=== PATIENT | male | born 1960 | race Caucasian/White ===

== ENCOUNTER 2023-10-30 11:37 | Inpatient (IN) | payer BC ==
[2023-10-30 12:49] LABS: #Eosinphils 0.3 thou/uL (0.0-0.7); #Monocytes 0.5 thou/uL (0.11-0.59); #Neutrophils 4.6 thou/uL (1.40-6.50); %Basophils 0.4 % (0.0-1.0); %Eosinophils 4.3 % (0.0-10.0); %Lymphocytes 25.2 % (21.0-51.0); %Monocytes 7.3 % (0.0-10.0); %Neutrophils 62.5 % (42.0-75.0); Hematocrit 39.9 % (42.0-52.0); Hemoglobin 13.7 g/dL (14.0-18.0); Mean Corpuscular HGB CONC 34.3 g/dL (32.0-36.0); Mean Corpuscular Hemoglobin 32.2 pg (27.0-31.0); Mean Corpuscular Volume 93.7 fl (78.0-98.0); Platelet Count 284 10x3/uL (130-400); RBC Distribution Width 11.9 % (11.5-14.5); Red Blood Cell (RBC) Count 4.26 mill/uL (4.70-6.10); White Blood Cell (WBC) Count 7.4 10x3/uL (4.8-10.8)
[2023-10-30] MEDS ORDERED: diphenhydrAMINE 50 MG/ML VIAL IVP PRN (13:04)
[2023-10-30] MEDS ORDERED: Promethazine 25 MG TAB PO PRN (13:04)
[2023-10-30] MEDS ORDERED: Milk Of Magnesia 30 ML UDCUP PO PRN (13:04)
[2023-10-30] MEDS ORDERED: Mag-Al 1200 mg/1200 mg/30 ML UDCUP PO PRN (13:04)
[2023-10-30] MEDS ORDERED: traMADol HCl 50 MG TAB PO PRN (13:04)
[2023-10-30 13:06] LABS: Prothrombin Time 13.6 sec (12.0-14.7)
[2023-10-30 13:17] LABS: ALT (SGPT) 19 U/L (8-55); AST (SGOT) 16 U/L (5-34); Albumin 4.3 g/dL (3.4-4.8); Alkaline Phosphatase 63 U/L (40-110); Anion Gap 14 mmol/L (10-20); BUN (Urea Nitrogen) 14 mg/dL (8.4-25.7); Bilirubin, Total 0.5 mg/dL (0.2-1.2); Calc. Creatinine Clearance 0 mL/min (70-130); Calcium 9.5 mg/dL (7.8-10.44); Carbon Dioxide 23 mmol/L (23-31); Chloride 104 mmol/L (98-107); Estimated GFR 103; Globulin 2.5 g/dL (2.4-3.5); Glucose 103 mg/dL (80-115); Potassium 3.9 mmol/L (3.5-5.1); Protein, Total 6.8 g/dL (5.8-8.1); Sodium 137 mmol/L (136-145)
[2023-10-30] MEDS ORDERED: CEFAZOLIN 2 GM VIAL ONE ×2 (14:05→14:06)
[2023-10-30] MEDS ORDERED: Sodium Chloride 0.9% 100 ML ONE (14:05)
[2023-10-30] MEDS ORDERED: fentaNYL 50 mcg/mL 1 mL Vial ONE (15:25)
[2023-10-30] MEDS ORDERED: PROPOFOL 20 ML ONE ×3 (15:25→16:26)
[2023-10-30] MEDS ORDERED: Lidocaine 1% PF 5 ML VIAL ONE (15:26)
[2023-10-30] MEDS ORDERED: Midazolam HCl 2 mg/2 ml Vial ONE (15:26)
[2023-10-30] MEDS ORDERED: Lidocaine 1% (PF) 30 ML VIAL ONE (16:10)
[2023-10-30] MEDS ORDERED: tiZANidine HCl 4 MG TAB PO PRN (16:19)
[2023-10-30] MEDS: Sodium Chloride 0.9% 1,000 ML IV SCH (17:27)
[2023-10-30] MEDS: Lisinopril 20 MG TAB PO SCH (17:45)
[2023-10-30] MEDS: Amlodipine 10 MG TAB PO SCH (17:47)
[2023-10-30] MEDS: Amlodipine 5 MG TAB PO SCH (18:21)
[2023-10-30] MEDS: Lisinopril 10 MG TAB PO SCH (18:21)
[2023-10-30] MEDS: hydrALAZINE 20 MG/ML VIAL SLOW IVP PRN (18:39)
[2023-10-30] MEDS: Venlafaxine 75 MG TAB PO SCH (20:30)
[2023-10-30] MEDS: HYDROcodone/Acetaminophen 10/325 mg Tablet PO PRN ×2 (20:30→23:27)
[2023-10-30] MEDS: Diazepam 5 MG TAB PO PRN (21:37)
[2023-10-30] MEDS: CEFAZOLIN 2 GM in Sodium Chloride 0.9% 100 ML IVPB SCH (21:38)
[2023-10-30] MEDS: Lactated Ringer's 1,000 ML IV SCH (23:59)
[2023-10-31 05:27] LABS: #Eosinphils 0.4 thou/uL (0.0-0.7); #Monocytes 0.7 thou/uL (0.11-0.59); %Basophils 0.4 % (0.0-1.0); %Eosinophils 4.3 % (0.0-10.0); %Lymphocytes 25.9 % (21.0-51.0); %Monocytes 8.7 % (0.0-10.0); %Neutrophils 60.3 % (42.0-75.0); Hematocrit 38.5 % (42.0-52.0); Hemoglobin 13.1 g/dL (14.0-18.0); Mean Corpuscular Hemoglobin 31.6 pg (27.0-31.0); Mean Corpuscular Volume 92.8 fl (78.0-98.0); Mean Platelet Volume 9.9 fL (7.4-10.4); Platelet Count 284 10x3/uL (130-400); RBC Distribution Width 11.8 % (11.5-14.5); Red Blood Cell (RBC) Count 4.15 mill/uL (4.70-6.10); White Blood Cell (WBC) Count 8.3 10x3/uL (4.8-10.8)
[2023-10-31 05:49] LABS: Anion Gap 13 mmol/L (10-20); BUN (Urea Nitrogen) 10 mg/dL (8.4-25.7); Calc. Creatinine Clearance 156 mL/min (70-130); Carbon Dioxide 25 mmol/L (23-31); Chloride 102 mmol/L (98-107); Estimated GFR 106; Glucose 91 mg/dL (80-115); Potassium 3.6 mmol/L (3.5-5.1); Sodium 136 mmol/L (136-145)
[2023-10-31] MEDS: Enoxaparin 40 MG (0.4 mL) SYRINGE SC SCH (08:34)
[2023-10-31] MEDS: Lisinopril 20 MG TAB PO SCH (08:35)
[2023-10-31] MEDS: Acetaminophen 325 MG TAB PO PRN (09:42)
[2023-10-31] MEDS: Ondansetron PF 4 MG/2 ML Vial IVP PRN (11:01)
[2023-10-31] MEDS: Dexamethasone 10 MG/ML VIAL SLOW IVP SCH (15:47)
[2023-10-31] MEDS: Gabapentin 300 MG CAP PO SCH (20:39)
[2023-10-31] MEDS: Dexamethasone 4 MG TAB PO SCH (20:40)
[2023-11-01] MEDS ORDERED: Bisacodyl 10 MG SUPP PR PRN (07:03)
[2023-11-01] MEDS: Lisinopril 20 MG TAB PO SCH (08:47)
[2023-11-01] MEDS: Docusate 100 MG CAP PO SCH (08:47)
[2023-11-01] MEDS: Amlodipine 10 MG TAB PO SCH (08:48)
[2023-11-01] MEDS: Venlafaxine HCl XR 150 MG CAP PO SCH (08:48)
[2023-11-01] MEDS: hydrALAZINE 20 MG/ML VIAL SLOW IVP PRN (10:20)
[2023-11-01] MEDS ORDERED: PROPOFOL 40 ML ONE (13:39)
[2023-11-01] MEDS ORDERED: fentaNYL PF 100 MCG/2 ML SYRINGE ONE (13:39)
[2023-11-01] MEDS ORDERED: Midazolam HCl 2 mg/2 ml Vial ONE (13:40)
[2023-11-01] MEDS ORDERED: Lidocaine 1% MPF 2 ML VIAL ONE (13:49)
[2023-11-01] MEDS ORDERED: Lidocaine 1% PF 5 ML VIAL ONE (13:50)
[2023-11-01] MEDS ORDERED: PROPOFOL 20 ML ONE (14:16)
[2023-11-01] MEDS ORDERED: Dexamethasone 20 MG/5 ML VIAL ONE (14:50)
[2023-11-01] MEDS: Sodium Chloride 0.9% 1,000 ML IV SCH (15:17)
[2023-11-02] MEDS: Lidocaine 1% (PF) 30 ML VIAL ONE (11:50)
[2023-11-02 13:22] LABS: CSF Source CSF; CSF, Glucose 78 mg/dl (40-70); CSF, Protein 59 mg/dL (15-40); Clarity Hazy (Clear)
[2023-11-02 13:51] LABS: Cell Count Non Hematic 2 %; Eosinophils 23 %; Lymphocytes 59 %; Segmented Neutrophils 15 %
[2023-11-02] MEDS: Dexamethasone 1 MG TAB PO SCH (21:09)
[2023-11-04] MEDS: Sodium Chloride 0.9% 100 ML ONE ×2 (06:25→21:09)
[2023-11-04] MEDS ORDERED: Lidocaine 1% w/Epinephrine 1:100K 20 ML VIAL IJ SCH (19:00)
[2023-11-04] MEDS: Dexamethasone 1 MG TAB PO SCH (21:06)
[2023-11-05] MEDS: Lidocaine 1% (PF) 30 ML VIAL IJ SCH (09:45)
[2023-11-06 08:37] VITALS: BMI 25.7
[2023-11-06] MEDS ORDERED: Lidocaine 1% PF 5 ML VIAL ONE (11:09)
[2023-11-06] MEDS ORDERED: PROPOFOL 20 ML ONE (11:09)
[2023-11-06] MEDS ORDERED: Rocuronium Bromide 10 MG/ML (10ML VIAL) ONE (11:09)
[2023-11-06] MEDS ORDERED: Vancomycin 1 GM VIAL ONE ×2 (11:19→12:06)
[2023-11-06] MEDS ORDERED: fentaNYL PF 100 MCG/2 ML SYRINGE ONE (11:52)
[2023-11-06] MEDS ORDERED: CEFAZOLIN 1 GM VIAL ONE (12:16)
[2023-11-06] MEDS ORDERED: Sterile Water 10 ML ONE (12:17)
[2023-11-06] MEDS ORDERED: Ondansetron PF 4 MG/2 ML Vial ONE (12:28)
[2023-11-06] MEDS ORDERED: Ketorolac Tromethamine 30 MG (1 mL) VIAL ONE (12:28)
[2023-11-06] MEDS ORDERED: Dexamethasone 4 mg/ml Vial ONE (12:28)
[2023-11-06] MEDS ORDERED: ePHEDrine Sulfate 50 MG/10 ML VIAL ONE (12:35)
[2023-11-06] MEDS ORDERED: PHENYLEPHRINE-NS 100 MCG/ML 10 ML SYRINGE ONE (12:38)
[2023-11-06] MEDS ORDERED: Ondansetron HCl/PF 4 MG/2 ML Vial IVP PRN (12:45)
[2023-11-06] MEDS ORDERED: HYDROmorphone 2 MG/ML VIAL SLOW IVP PRN (12:45)
[2023-11-06] MEDS ORDERED: Meperidine HCl/PF 25 MG/ML VIAL SLOW IVP PRN (12:45)
[2023-11-06] MEDS ORDERED: Promethazine HCl 25 MG/ML VIAL IM PRN (12:45)
[2023-11-06] MEDS ORDERED: Glycopyrrolate 0.2 MG/ML 5 ML SYRINGE ONE (13:15)
[2023-11-06] MEDS ORDERED: NEOSTIGMINE 3 MG/3 ML SYR 3 MG/3 ML SYRINGE ONE (13:15)
[2023-11-06] MEDS: Dexamethasone 1 MG TAB PO SCH (17:40)
[2023-11-06] MEDS ORDERED: Dexamethasone 1 MG TAB PO SCH (22:00)
[2023-11-07] MEDS: Dexamethasone 1 MG TAB PO SCH (05:08)
[2023-11-09] MEDS: Milk Of Magnesia 30 ML UDCUP PO PRN (03:11)
[2023-11-09] MEDS: Polyethylene Glycol 3350 17 GM Packet PO PRN (09:33)
[2023-11-09] MEDS: Lidocaine 1% (PF) 30 ML VIAL FS SCH (14:36)
[2023-11-09] MEDS: Morphine 2 MG/ML VIAL SLOW IVP PRN (23:36)
[2023-11-10 07:45] VITALS: TEMP 98.4
[2023-11-10 07:58] VITALS: BP 145/85
== END 2023-11-10 11:00 | disposition home or self-care (01) | DRG 92 ==
LOC: ERS 11:37 → ERHOLD 13:01 → CCU 14:57 → SJJU 11-09 18:57
PROVIDERS: ADMIT Surgery; ATTEND Surgery
PROC: 009U30Z Drainage of Spinal Canal with Drainage Device, Percutaneous Approach (ICD-10-PCS; principal; 2023-10-30)
DX: G97.82 Other postprocedural complications and disorders of nervous system (principal); G96.09 Other spinal cerebrospinal fluid leak; F32.A Depression, unspecified; I10 Essential (primary) hypertension; G89.29 Other chronic pain; Y83.8 Other surgical procedures as the cause of abnormal reaction of the patient, or of later complication, without mention of misadventure at the time of the procedure; Z98.890 Other specified postprocedural states; Y92.9 Unspecified place or not applicable; G96.198 Other disorders of meninges, not elsewhere classified
CPT/HCPCS: 36415; 72131; 80048; 80053; 82945; 84157; 85025; 85060; 85610; 85730; 86140; 87070; 87205; 89051; 96374; C1713; C1889; J0360; J0690; J1100; J1650; J1885; J2001; J2250; J2272; J2405; J2704; J3010; J3370; J3490; J7050; J7120; J8540